=== PATIENT | female | born 1975 | race Caucasian/White ===

== ENCOUNTER → 2018-12-20 | Outpatient (CLI) | payer OTHER ==
[~2018-12-20] MED LIST: CODACE30; HYDACE5; HYDACE5 PO; LEVFLO500 PO; MULVITMINE; NITR100CA; ONDA8; RXHYDACE PO; [UNRECOGNIZED DRUG - REMARK]
== END | disposition home or self-care (01) ==
LOC: PLD 15:00 → LAB SHORT 15:00
DX: D48.5 Neoplasm of uncertain behavior of skin (principal)
CPT/HCPCS: 88305

== ENCOUNTER → 2022-05-22 | Outpatient (CLI) | payer OTHER | LOC: LAB SHORT 16:19 → LAB 16:19 | DX: R30.0 Dysuria (principal) | CPT/HCPCS: 87086 ==

== ENCOUNTER → 2022-05-29 | Outpatient (CLI) | payer OTHER | LOC: LAB SHORT 15:35 → LAB 15:35 | DX: R30.0 Dysuria (principal) | CPT/HCPCS: 87086 ==

== ENCOUNTER 2023-05-18 01:25 | Observation (INO) | payer OTHER ==
[2023-05-18] VITALS (12 sets, daily range): BP systolic 108–159; BP diastolic 71–99
[~2023-05-18] VITALS: Ht 162.6 cm; Wt 90.0 kg
[2023-05-18 04:03] LABS: BASOPHILS ABSOLUTE AUTO 0.03 K/mm3 (0.00-0.23); BASOPHILS PERCENT AUTO 0 % (0-2); EOSINOPHILS PERCENT AUTO 0 % (0-6); Hematocrit 40.2 % (33.0-51.0); Hemoglobin 13.5 g/dL (11.5-16.0); IMMATURE GRAN ABSOLUTE AUTO 0.05 K/mm3 (0.00-0.10); IMMATURE GRAN PERCENT AUTO 0 % (0-1); LYMPHOCYTES ABSOLUTE AUTO 1.17 K/mm3 (0.84-5.20); LYMPHOCYTES PERCENT AUTO 8 % (21-46); MONOCYTES ABSOLUTE AUTO 0.27 K/mm3 (0.16-1.47); MONOCYTES PERCENT AUTO 2 % (4-13); Mean Corpuscular HGB 30.2 pg (26.0-34.0); Mean Corpuscular HGB Conc 33.6 g/dL (31.5-36.5); Mean Corpuscular Volume 90 fL (80-100); Mean Platelet Volume 9.1 fL (9.1-12.4); NEUTROPHILS ABSOLUTE AUTO 13.35 K/mm3 (1.96-9.15); NEUTROPHILS PERCENT AUTO 90 % (41-73); Platelet Count 322 K/mm3 (150-400); RDW Coefficient Variation 12.7 % (11.7-14.2); RDW Standard Deviation 41.9 fL (35.1-46.3); Red Blood Cell Count 4.47 M/mm3 (3.80-5.20); White Blood Cell Count 14.87 K/mm3 (4.00-11.30)
[2023-05-18 04:22] LABS: Albumin, Blood 3.7 g/dL (3.4-5.0); Albumin/Globulin Ratio 1.1 (0.8-1.8); Bilirubin, Total 0.3 mg/dL (0.1-1.0); Bun/Creatinine Ratio 11.7 (12.0-20.0); Calcium, Blood 8.9 mg/dL (8.5-10.1); Creatinine, Blood 0.77 mg/dL (0.40-1.00); Globulin, Blood 3.4 g/dL (2.2-4.0); Potassium, Blood 3.9 mmol/L (3.5-5.5); Total Protein, Blood 7.1 g/dL (6.4-8.2)
--- NOTE | 2023-05-18 12:57 | NUR ---
PT TO DAY SURGERY
--- NOTE | 2023-05-18 17:15 | NUR ---
UPDATE PT BACK FROM DAY SURGERY. PLACED ON 2 L VIA NC D/T O2 AT 90% ON RA. VSS. PT RESTING. SURGICAL SITE WNL, C/D/I.
--- NOTE | 2023-05-18 17:42 | NUR ---
SHIFT SUMMARY PT ALERT AND ORIENTED X 4. HR STABLE. BP STABLE. NO CP OR PRESSURE REPORTED. PRIOR TO DAYSURGERY PT NPO FOR PROCEDURE AND MEDICATED FOR PAIN. PT BACK IN ROOM AT THIS TIME. VSS. PT ON 2 L VIA NC. NO CP OR PRESSURE REPORTED. STERI-STRIPS C/D/I. PT REPORTS NO PAIN.STARTED ON CLEAR LIQUID DIET. CHRIS WELL AT THIS TIME. FAMILY AT BEDSIDE. CALL LIGHT WITHIN REACH. WILL CONT TO MONITOR UNTIL REPORT GIVEN TO NIGHTSHIFT RN.
[2023-05-19 00:05] VITALS: BP 106/69
[2023-05-19 04:37] VITALS: BP 109/70
--- NOTE | 2023-05-19 05:00 | NUR ---
SHIFT SUMMARY POD1 LAP YESI. X3 LAP SITES C/D/I. VSS. PT SLEPT WELL T/O THE NIGHT. TOLLERATING MINIMAL PO INTAKE W/O N/V. VOIDING W/O DIFFICULTY, URINE NOTED TO BE DARK YELLOW. IV FLUIDS INFUSED T/O THE NIGHT. MEDICATED FOR PAIN ONCE TONIGHT WITH TORADOL. NO ACUTE EVENTS NOTED PLAN FOR PT TO ADVANCE DIET AND D/C HOME NO IGNITION SOURCE NOTED
[2023-05-19 07:19] VITALS: BP 118/77
[2023-05-19] MEDS ORDERED: Norco 5-325 Ta1 EACH PO (10:45)
--- NOTE | 2023-05-19 11:14 | NUR ---
DISCHARGE POD 1 LAP YESI PT AMBULATING IN ROOM WELL WITH NO WEAKNESS. PAIN CONTROLLED PER EMAR. TOLERATING PO, NO NAUSEA. LAP SITES REMAINS CDI. PASSING FLATUS. INSTRUCTIONS GONE OVER WITH PATIENT. DENIED QUESTIONS. PRESCRIPTION SENT HOME WITH PATIENT. ESCORTED OUT WITH WHEELCHAIR.
== END 2023-05-19 11:09 | disposition home or self-care (01) ==
LOC: ER 01:25 → SURS 01:26
PROVIDERS: Student in an Organized Health Care Education/Training Program; Surgery; ADMIT Surgery
PROC: 0FT44ZZ Resection of Gallbladder, Percutaneous Endoscopic Approach (ICD-10-PCS; principal; 2023-05-18 14:30)
DX: K80.00 Calculus of gallbladder with acute cholecystitis without obstruction (principal); K82.A1 Gangrene of gallbladder in cholecystitis; K42.9 Umbilical hernia without obstruction or gangrene
CPT/HCPCS: 76705; 80053; 81025; 83690; 85025; 88304; 93005; 93010; 96365; 96375; 96376; 99285-25; A9270; G0378; J0690; J1100; J1170; J1885; J2250; J2405; J2543; J2704; J3010; J7120

== ENCOUNTER 2025-04-20 14:39 | Emergency (ER) | payer OTHER ==
[~2025-04-20] VITALS: Ht 162.6 cm; Wt 95.2 kg
[~2025-04-20 14:39] MED LIST changes: +Norco 5-325 Ta1 EACH PO
[2025-04-20 15:04] LABS: BASOPHILS ABSOLUTE AUTO 0.04 K/mm3 (0.00-0.23); BASOPHILS PERCENT AUTO 1 % (0-2); EOSINOPHILS ABSOLUTE AUTO 0.16 K/mm3 (0.00-0.68); EOSINOPHILS PERCENT AUTO 2 % (0-6); Hematocrit 41.8 % (33.0-51.0); Hemoglobin 14.2 g/dL (11.5-16.0); IMMATURE GRAN ABSOLUTE AUTO 0.03 K/mm3 (0.00-0.10); IMMATURE GRAN PERCENT AUTO 0 % (0-1); LYMPHOCYTES ABSOLUTE AUTO 2.87 K/mm3 (0.84-5.20); LYMPHOCYTES PERCENT AUTO 33 % (21-46); MONOCYTES ABSOLUTE AUTO 0.49 K/mm3 (0.16-1.47); MONOCYTES PERCENT AUTO 6 % (4-13); Mean Corpuscular HGB Conc 34.0 g/dL (31.5-36.5); Mean Corpuscular Volume 90 fL (80-100); NEUTROPHILS ABSOLUTE AUTO 5.23 K/mm3 (1.96-9.15); NEUTROPHILS PERCENT AUTO 59 % (41-73); NRBC ABSOLUTE 0.00 K/mm3 (0.00-0.02); NRBC Auto 0.0 /100 WBC (0.0-0.2); Platelet Count 324 K/mm3 (150-400); RDW Coefficient Variation 12.9 % (11.7-14.2); RDW Standard Deviation 42.1 fL (35.1-46.3)
[2025-04-20] MEDS ORDERED: METO50ER PO (15:08)
[2025-04-20 15:31] LABS: Alanine Aminotransfer (ALT/SGP 50.0 U/L (12-78); Albumin, Blood 3.9 g/dL (3.4-5.0); Albumin/Globulin Ratio 1.0 (0.8-1.8); Anion Gap 11.0 mmol/L (3-11); Aspartate Aminotrans (AST/SGOT 21.0 U/L (12-37); Bilirubin, Total 0.4 mg/dL (0.1-1.0); Blood Urea Nitrogen 15.0 mg/dL (8-24); CO2, Blood 25.0 mmol/L (21-32); Calcium, Blood 9.3 mg/dL (8.5-10.1); Chloride, Blood 108.0 mmol/L (98-108); Creatinine, Blood 0.71 mg/dL (0.40-1.00); Globulin, Blood 4.0 g/dL (2.2-4.0); Glucose, Blood 116.0 mg/dL (70-99); Potassium, Blood 3.6 mmol/L (3.5-5.5); Sodium, Blood 140.0 mmol/L (136-145); Total Protein, Blood 7.9 g/dL (6.4-8.2)
[2025-04-20] MEDS ORDERED: Metoprolol Tartrate 1 MG/ML 5 ML VIAL IV PRN (17:10)
[2025-04-20] MEDS ORDERED: Diltiazem HCl 5 MG / ML 5ML Vial IV ONE (18:35)
[2025-04-20 19:30] VITALS: BP 99/76
== END 2025-04-20 19:59 | disposition home or self-care (01) ==
LOC: ER 14:39
PROVIDERS: Emergency Medicine
DX: I48.0 Paroxysmal atrial fibrillation (principal); Z79.899 Other long term (current) drug therapy; Z90.49 Acquired absence of other specified parts of digestive tract
CPT/HCPCS: 71046; 80053; 84484; 85025; 93005; 93010; 96374; 96375; 96376; 99285-25; J7120